=== PATIENT | male | born 1985 | race Two or more races ===

== ENCOUNTER 2021-06-29 22:20 | Emergency (ER) | payer OTHER ==
[~2021-06-29] VITALS: Ht 175.3 cm; Wt 90.7 kg
== END 2021-06-30 00:30 | disposition home or self-care (01) ==
LOC: ER 22:20
DX: S61.012A Laceration without foreign body of left thumb without damage to nail, initial encounter (principal); W45.8XXA Other foreign body or object entering through skin, initial encounter; Y92.89 Other specified places as the place of occurrence of the external cause